=== PATIENT | female | born 1990 | race Caucasian/White ===

== ENCOUNTER 2022-06-10 06:00 | Day surgery (SDC) | payer OTHER ==
[~2022-06-10] VITALS: Ht 157.5 cm; Wt 72.6 kg
[~2022-06-10 06:00] MED LIST: PLAQUENIL PO; TYLENOL-CODEINE1 TAB PO
[2022-06-10] MEDS ORDERED: IBU600 MG PO (08:15)
== END 2022-06-10 11:45 | disposition home or self-care (01) ==
LOC: CIR.AMB 06:00
PROVIDERS: ATTEND Obstetrics & Gynecology Gynecology
DX: N84.0 Polyp of corpus uteri (principal); Z20.822 Contact with and (suspected) exposure to COVID-19; Z91.013 Allergy to seafood; J45.909 Unspecified asthma, uncomplicated; M06.80 Other specified rheumatoid arthritis, unspecified site